=== PATIENT | female | born 1985 | race Caucasian/White ===

== ENCOUNTER 2016-07-17 14:01 | Observation (INO) | payer OTHER ==
[~2016-07-17] VITALS: Ht 160 cm; Wt 62.3 kg
[2016-07-17] VITALS (9 sets, daily range): BP systolic 98–130; BP diastolic 56–87; PULSE 74–120; RESP 12–20; O2SAT 96–100
[~2016-07-17 14:01] MED LIST: ACYC400T17 PO; PREN1TAB47 PO
[2016-07-17] MEDS ORDERED: Propofol 10,000 mCg/mL 20 mL Inj ONE (14:02)
[2016-07-17] MEDS ORDERED: Phenylephrine/NS-PF 100 mCg/mL 5 mL Syringe IVPUSH ONE (14:02)
[2016-07-17] MEDS ORDERED: Calcium Chl 10% 1 Gm/10 mL Syringe ONE (14:02)
[2016-07-17] MEDS ORDERED: Glycopyrrolate 0.2 mg/mL 5 mL Inj ONE (14:02)
[2016-07-17] MEDS ORDERED: Rocuronium 10 mg/mL 5 mL Inj ONE (14:02)
[2016-07-17] MEDS ORDERED: Neostigmine 1 mg/mL 5 mL Inj ONE (14:02)
[2016-07-17] MEDS ORDERED: Dexamethasone 4 mg/mL Inj ONE (14:02)
[2016-07-17] MEDS ORDERED: fentaNYL-PF 50 mCg/mL 2 mL Inj ONE (14:02)
[2016-07-17] MEDS ORDERED: Ondansetron 2 mg/mL 2 mL Inj ONE (14:02)
[2016-07-17] MEDS: Lactated Ringer's 1,000 ML IV SCH ×3 (14:30→19:04)
[2016-07-17] MEDS ORDERED: 0.9% Sodium Chloride 1,000 ML IV ONE (14:30)
--- NOTE | 2016-07-17 14:56 | HP ---
[address] [address] HISTORY AND PHYSICAL PATIENT: SAM GAN : 1985 MR#: [id number] ADMIT: 07/17/2016 JOB ID: [id number] CHIEF COMPLAINT: Ectopic . HISTORY OF PRESENT ILLNESS: This is a 30-year-old, G3, P 1-0-1-1 female who is presenting at an early gestational age after being transported over from [facility] for a ruptured ectopic . The patient had an early intrauterine and initially presented to our clinic for an amenorrhea visit. She followed up with light vaginal bleeding. After calling our triage line complaining of increasing vaginal bleeding and abdominal pain, she was recommended to present to the emergency department and an ambulance was called the morning of the . At [facility], imaging findings were concerning for a ruptured ectopic , and she was transferred over to our facility for this reason. Laboratory data at [facility] showed a hemoglobin of 10.0, down from ~12 two days prior. PAST MEDICAL HISTORY: History of chlamydia x2. PAST SURGICAL HISTORY: section x1. OBSTETRICAL HISTORY: She has a history of one miscarriage, one section and her current . SOCIAL HISTORY: She denies any tobacco, alcohol, or drug use. She does have a history of chlamydia infections twice in the past. MEDICATIONS: None. ALLERGIES: WELLBUTRIN. OBJECTIVE: Vital signs at this time are unavailable. In general, she is very pale and ill appearing in bed. Her heart shows regular rate and rhythm. Her lungs are clear to auscultation bilaterally. Her abdomen is soft, with diffuse abdominal tenderness. It is nondistended. Her extremities show no tenderness or edema. Laboratory data at this time is pendin. Typed and crossed labs will be collected in the operating room. She does consent to blood transfusion if needed. ASSESSMENT: This is a 30-year-old, 3, para 1-0-1-1 female with a ruptured ectopic . PLAN: At this point in time, we will bring her back to the operating room for diagnostic laparoscopy and treatment of her ruptured ectopic. She will be typed and crossed for 2 units at that time, though her hemoglobin does appear stable, as is her pulse at this time. She will be screened for her Rh status in the near future and if needed, RhoGAM will be given. Anticipate discharge home likely tomorrow. MARINA
--- NOTE | 2016-07-17 15:02 | PCM.HPANE ---
Patient Data Surgeon Admitting Provider: Attending Provider:Tamra Morales MD Primary Care Physician:Senait Rossi MD Other Provider:[facility] Reason for Visit Ruptured Etopic Ht/WT & BMI Body Mass Index Allergies Coded Allergies: No Known Allergies (Unverified Allergy, Unknown, 07/17/16) bupropion (Verified Allergy, Unknown, "I BLACK OUT", 07/17/16) Diabetes History Hx Diabetes?: No Medications Hypertension Medication: No Home Meds Incl Beta Jess: No Reported Medications Acyclovir-Expunged Drug, Do Not Renew! 400 Mg [id number] Mg PO BID 01/13/12 Vit/Fe Fumarate/Fa-Expunged Drug, Do (-Expunged Drug, Do Not Renew!)1 Tab Tablet1 Tab PO DAILY 01/13/12 History History of ENT Problems?: No Hx of Heart Problems?: No Hx of Respiratory Problem?: No Hx Neurologic Problems?: No Hx of GI Problems?: No Hx of Problems?: No Other History/Comment ectopic Hx Musculoskeletal Problems?: No Hx of Psycho/Social Problems?: No Hx Surgeries?: Yes (c/s) History Blood Transfusions: Positive for:: Accept Blood Products? Hx Diabetes: No Hx Alcohol Use: YesHave You Smoked inLast 12 mo: No Stop/Bang JUDITH Risk Assessment: Low Risk, <3 Yes Risk Assessment Category Category 1A: Patient has history of documented sleep apnea, and HAS NOT received any narcotic, sedative or anesthesia administration during this stay. Category 1B: Patient has history of documented sleep apnea, and HAS received any narcotic , sedative or anesthesia administration during this stay Category 2: Patient has SUSPECTED Obstructive Sleep Apnea, and HAS received any narcotic , sedative or anesthesia administration during this stay. Category 3: Patient has SUSPECTED Obstructive Sleep Apnea and HAS NOT received narcotic, sedative or anesthesia administration during this stay. Category 4: Outpatient in Procedural Areas with known sleep apnea or who screen positive for High Risk via the STOP/BANG questionnaire. Exam Exam Vital Signs Vital Signs Date Time Temp Pulse Resp B/P Pulse Ox O2 Delivery O2 Flow Rate FiO2 07/17/16 14:25 106/64 07/17/16 14:15 108/68 07/17/16 14:10 36.3 94 12 103/56 100 Room Air General Appearance: Alert, Oriented X3, Cooperative, No Acute Distress, Other ( pale) HEENT/AIRWAY: MP 2 Lungs: Clear to Auscultation, Normal Air Movement Heart: Exam Unremarkable, Regular Rate/Rhythm, No Murmurs/Rubs/Gallops Meds/Labs/Diagnostics Labs Test 07/17/16 14:52 Plan Impression Patient chart reviewed, patient interviewed and anesthestic plan with risks, benefits, and alternatives discussed, and informed consent obtained. NPO Status: 0700 07/17/16 ASA Physical Status: ASA1 Plus Emergency Anesthetic Plan: GA Bene/Risks/Altern/Consents: Yes (accepts blood products) HP Complete Prior to Induction: Yes Guido Galvez MD Jul 17, 2016 15:01
[2016-07-17 15:09] LABS: Mean Corpuscular Hemoglobin 32.8 pg (27.0-35.0)
[2016-07-17] MEDS ORDERED: Bupivacaine 0.5%/EPI 50 mL Inj INFILTRATE ONE (15:12)
[2016-07-17] MEDS ORDERED: Lactated Ringer's 500 ML IV PRN (15:27)
[2016-07-17] MEDS ORDERED: EPHEDrine Sulfate 50 mg/mL Inj IVPUSH PRN (15:30)
[2016-07-17] MEDS ORDERED: fentaNYL-PF 50 mCg/mL 2 mL Inj IVPUSH PRN (15:30)
[2016-07-17] MEDS ORDERED: Atropine 0.4 mg/mL Inj IVPUSH PRN (15:30)
[2016-07-17] MEDS ORDERED: Labetalol 5 mg/mL 4 mL Inj IV PRN (15:30)
[2016-07-17] MEDS ORDERED: Phenylephrine 10,000 mCg/mL Inj IVPUSH PRN (15:30)
[2016-07-17] MEDS ORDERED: hydrALAZINE 20 mg/mL Inj IVPUSH PRN (15:30)
[2016-07-17] MEDS ORDERED: HYDROmorphone 1 mg/mL Inj IVPUSH PRN (15:30)
[2016-07-17] MEDS ORDERED: MetoCLOpramide 5 mg/mL 2 mL Inj IVPUSH PRN ×2 (15:30→16:35)
[2016-07-17] MEDS ORDERED: Senna-Docusate 8.6-50 mg Tablet PO PRN (16:35)
[2016-07-17] MEDS ORDERED: Alum-Mag Hydrox-Simeth 30 mL Suspension PO PRN (16:35)
[2016-07-17] MEDS ORDERED: Ondansetron 2 mg/mL 2 mL Inj IVPUSH PRN (16:35)
--- NOTE | 2016-07-17 16:38 | PCM.ANEP1 ---
Post Anesthesia Phase 1 PACU Phase 1 Assessment Vital Signs Vital Signs Date Time Temp Pulse Resp B/P Pulse Ox O2 Delivery O2 Flow Rate FiO2 07/17/16 14:25 106/64 07/17/16 14:15 108/68 07/17/16 14:10 36.3 94 12 103/56 100 Room Air Anesthetic Administered: GA Level of Alertness: Awake, talking REYES's with Equal Strength: Yes Pain: No Nausea or Vomiting: No Oxygen Delivery: Simple Mask Lungs: Clear to Auscultation, Normal Air Movement Summary VSS, 2nd unit of blood ongoing Guido Galvez MD Jul 17, 2016 16:38
[2016-07-17 17:12] LABS: Mean Corpuscular Hemoglobin 30.7 pg (27.0-35.0); Mean Corpuscular Volume 94.5 fL (81-100)
--- NOTE | 2016-07-17 17:36 | PCM.ANEP2 ---
Post Anesthesia Evaluation ASA/CMS Post Anesthesia VS in Patient's Normal Range?: Yes Resp Stable; Airway Patent?: Yes CV Function & Hydration Stable: Yes Mental Status Recovered?: Yes Pain control Satisfactory?: Yes N/V Control Satisfactory?: Yes Guido Galvez MD Jul 17, 2016 17:36
[2016-07-17] MEDS: Ondansetron 2 mg/mL 2 mL Inj IVPUSH PRN (18:07)
[2016-07-17 18:26] LABS: INR 1.16 ratio
--- NOTE | 2016-07-17 18:38 | OP ---
[address] [address] OPERATIVE REPORT PATIENT: SAM GAN : 1985 MR#: [id number] ADMIT: 07/17/2016 JOB ID: [id number] DATE OF SURGERY: 07/17/2016 PREOPERATIVE DIAGNOSIS(ES): Ruptured ectopic . POSTOPERATIVE DIAGNOSIS(ES): Ruptured ectopic . PROCEDURE PERFORMED: Diagnostic laparoscopy. Evacuation of hemoperitoneum and left salpingectomy with removal of left-sided ectopic . SURGEON: Tamra Morales MD. DITTO MACHINE OPERATOR: Marcelino Cartagena MD, who was necessary due to the complicated nature of the case with the patient's history of previous surgeries and hemodynamic instability. ANESTHESIA: General endotracheal anesthesia. ESTIMATED BLOOD LOSS: 1500 cc. URINE OUTPUT: 150 cc of clear yellow urine. INTRAVENOUS FLUID: 1400 cc of crystalloid, 2 units of packed red blood cells. COMPLICATIONS: None apparent. INDICATIONS: This is a 30-year-old, G3, P-1-0, now 2-1 female who presented to [facility] by ambulance for abdominal pain. She had a known early with a quant of 900 and had intermittent vaginal bleeding. She had been seen there the day prior and ultrasound did not reveal anything within the uterus and no adnexal masses. After presenting this morning a repeat ultrasound showed hemoperitoneum and concern for ruptured ectopic . Her hemoglobin at the time of evaluation at [facility] was 10.0, and she was moderately hypotensive but was responding well to fluid boluses. After deeming that she was stable for transfer, she was then transferred to [facility] for emergent surgery as no OB/GYNs were available at this facility. Risks, benefits, and alternatives were discussed with her at the time of arrival and she did elect to proceed. DESCRIPTION OF PROCEDURE: The patient was taken to the operating room where she was placed in dorsal lithotomy position, prepped and draped in the usual sterile fashion. Intraoperatively, she was noted to be quite hypotensive with blood pressures in the 70s systolic over 30s diastolic and 2 units of packed red blood cells were then ordered. After anesthesia was administered, a bivalve speculum was placed and the anterior lip of the cervix was grasped with a tenaculum. An acorn uterine manipulator was then placed. Attention was then turned to the abdomen where a Veress needle was inserted in the midline of the umbilicus and the abdomen was insufflated with appropriately rising CO2 pressures. Next after injection of local anesthetic, a 5 mm infraumbilical incision was made and a 5 mm trocar was then placed. There was noted to be a large hemoperitoneum and so a 2nd port was then placed in the right lower quadrant, initially with a 5 mm port, which was then increased to a 10 mm size to allow for a larger suction supreme court justice and her hemoperitoneum was then evacuated out of the abdomen. Her uterus was noted to be normal in appearance. Her right fallopian tube and right ovary were normal in appearance. Her left fallopian tube showed evidence of a small cornual ectopic which was thought to be where the bleeding was coming from and adhesions were noted from the fallopian tube to the ovary consistent with her history of previous chlamydia infection. The left fallopian tube was then removed using the Thunderbeat device and the left fallopian tube and left ectopic were then removed from the abdomen. Hemostasis was assured. The abdomen was copiously irrigated and all attainable hemoperitoneum was removed with the suction supreme court justice for a total blood loss of approximately 1500 cc of blood. Once hemostasis was achieved and her abdomen was cleared of blood products the right lower quadrant port site was removed and the fascia was then closed with 0-Vicryl using a Claudio-Luis F device. The skin was then closed with 4-0 Monocryl in a subcuticular fashion. Dermabond was placed on top. Next, the acorn manipulator was removed from the uterus and the tenaculum was then removed. The tenaculum sites were inspected and noted to be hemostatic. The patient tolerated this procedure well, recovered in the PACU. All sponge, needle, and instrument counts were correct at the completion of the procedure. [facility]
--- NOTE | 2016-07-17 18:40 | NUR ---
Arrival to 1031 Pt transferred to 1031 at 1730 from PACU. Pain rated at 7/10 with mild nausea. 3 lap sites are CDI with dermabond and abdomen is soft but tender. Pt is alert and oriented and requesting dinner. Kpad given for abdomen, Ketorolac for pain and Zofran for nausea given. Family at bedside. Report taken from MARY Garcia.
[2016-07-17] MEDS: Acetaminophen IV 1,000 MG in IV Premix 1 EACH IV PRN (21:24)
[2016-07-17] MEDS: Senna-Docusate 8.6-50 mg Tablet PO SCH (21:30)
[2016-07-17] MEDS: oxyCODONE-Acetamin 5-325 mg Tablet PO PRN (22:29)
[2016-07-18] VITALS (7 sets, daily range): BP systolic 93–100; BP diastolic 50–67; PULSE 67–84; RESP 16–20; O2SAT 97–99
[2016-07-18] MEDS: oxyCODONE-Acetamin 5-325 mg Tablet PO PRN ×4 (02:48→17:53)
[2016-07-18] MEDS: Lactated Ringer's 1,000 ML IV SCH ×3 (02:53→16:29)
--- NOTE | 2016-07-18 04:18 | NUR ---
Pain Pt. has had moderate to severe pain all night. IV Toradol and PO Percocet seems to keep it from becoming very severe. Will continue to monitor.
[2016-07-18 07:00] LABS: BASOPHILS % (AUTO) 0.1 % (0-3); EOSINOPHILS % (AUTO) 0.1 % (0-5); MONOCYTES % (AUTO) 8.2 % (4-12); Mean Corpuscular Hemoglobin 31.7 pg (27.0-35.0); Mean Corpuscular Volume 92.3 fL (81-100); Platelet Count 46 bil/L (150-400)
[2016-07-18] MEDS: Acetaminophen IV 1,000 MG in IV Premix 1 EACH IV PRN (08:42)
[2016-07-18] MEDS: Senna-Docusate 8.6-50 mg Tablet PO SCH (08:56)
[2016-07-18] MEDS: Ondansetron 2 mg/mL 2 mL Inj IVPUSH PRN ×2 (09:15→12:47)
--- NOTE | 2016-07-18 12:48 | NUR ---
Social Work- Initial Assessment/Readiness for Discharge Data: Pt is a 30 year old female admitted for Ruptured Ectopic per H&P. Pt's insurance is [facility] and PCP is Payton Cartagena MD. SW met with pt and pt's mother at bedside to discuss discharge planning, SW role explained. Pt lives in [place] with her boyfriend and daughter where she remains independent with her ADLs. Pt does not use DME, does not have HH or SNF history. Pt drives. Pt has no LTC or VA benefits. SW educated pt regarding DPOA, left paperwork to be completed. SW provided phone number and plan on board. Pt to discharge home with boyfriend to transport via POV. No anticipated discharge needs. SW will continue to follow. Assessment: [place]. Plan: Pt to discharge home with boyfriend to transport via POV. No anticipated discharge needs. SW will continue to follow. Shelly Juan MSW
--- NOTE | 2016-07-18 14:45 | PROG NOTE ---
[address] [address] PROGRESS NOTE PATIENT: SAM GAN : 1985 MR#: [id number] ADMIT: 07/17/2016 JOB ID: [id number] DATE: 07/18/2016 SUBJECTIVE: The patient looks lethargic in bed. Alert and oriented x3. Did not ambulate yet. Tolerated some p.o. intake this morning. Ins and outs for the last 8 hour shift is 1752 cc in, 1000 cc out. OBJECTIVE: Vital signs are 36.7 degrees centigrade for temperature, pulse is 67, respirations are 18, blood pressure is 96/52, pulse ox is 97% on room air. Heart is regular rate and rhythm. Positive S1, S2. Lungs clear to auscultation bilaterally. Abdomen: Nondistended, positive bowel sounds. Laparoscopic incisions are clean, dry and intact with appropriate tenderness around the laparoscopic incisions. Perineum: No active bleeding. Lower extremities: No calf tenderness appreciated bilaterally. H and H this morning is 7.8 and 22.7. Platelets are 46, down from 61 yesterday and a white blood count is 15.7. ASSESSMENT AND PLAN: The patient is a 30-year-old postop day #1 status post left salpingectomy with ectopic removal plus evacuation of hemoperitoneum. The patient received blood transfusion yesterday by Dr. Morales for severe anemia. 1- severe anemia: Continue with iron and vitamin C. 2- severe thrombocytopenia. Hospitalist consulted. After discussing with the hospitalist, will evaluate for blood smear, HIV, hepatitis C virus infection and anti-phospholipid antibody syndrome labs. 3- Advance diet as tolerated. 4- DC Wilson catheter. 5- Ambulate. Continue with inpatient care. MTDD
[2016-07-18] MEDS ORDERED: 0.9% Sodium Chloride 250 ML ONE (16:31)
[2016-07-18] MEDS ORDERED: Acetaminophen IV 1,000 MG in IV Premix 1 EACH IV PRN (17:15)
[2016-07-18] MEDS: Ascorbic Acid 500 mg Tablet PO SCH (17:25)
--- NOTE | 2016-07-18 17:25 | PCM.CHPMED ---
Subjective Date of Service: Jul 18, 2016 Provider requesting consult: Ofelia Talavera MD Primary Physician: Admitting Physician: Primary Care Physician: Senait Rossi MD Attending Physician: Tamra Morales MD Chief Complaint: Chief Complaint: Anemia and thrombocytopenia History of Present Illness: HPI: Patient is a 30-year-old G3, P1011 female who presented to the emergency room as a transfer from [facility] for a ruptured ectopic . The patient was admitted to the [facility] service for increasing vaginal bleeding and abdominal pain. The patient was diagnosed with a ruptured ectopic and decreasing hemoglobin. Her hemoglobin on admission was 6.6 and 2 days prior it was 12. The patient had a laparoscopic procedure on 07/17 and had about 1500 mL of blood loss. The patient was fluid resuscitated and also had 2 units of packed red blood cell transfusion. The patient's hemoglobin increased to 10.1 however her platelets decreased from 80 down to 54. The patient's hemoglobin was 7.8 and hematocrit was 22.7 and platelets were 46 this morning and that is when Dr. Talavera decided to consult medicine for management of her anemia and thrombocytopenia. Patient currently denies any chest pain, shortness of breath, nausea, vomiting, diarrhea, headache. Patient reports some constipation and lethargy. Home medications: vitamins Allergies: Drug: Wellbutrin Food: No known food allergies Enviornmental: No known environmental allergies PMHx: HSV 1 Previous spontaneous SHx: 1 FHx: No coagulopathies in the family SocHx: Tobacco history: Patient denies Alcohol use: Patient denies Drug use: Positive for marijuana use only ROS: A 12point review of systems was performed or attempted to be performed. Please see HPI for pertinent positives. Physical Exam: GEN: Patient was awake, lethargic, responding appropriately to questions HEENT: PERRLA, EOMI, Neck soft supple, trachea midline, nomocephalic/atraumatic CV: +S1/S2, RRR, no murmurs auscultated Respiratory: CTAB, no wheezes, rales, rhonchi GI: +bowel sounds x4, soft, compressible, TTP secondary to laparoscopic procedure, incisions are clean dry and intact no signs of erythema or edema EXT: no c/c/e Neuro: CN II-XII grossly intact Psych: mood and affect were appropriate PMH Allergies: Coded Allergies: No Known Allergies (Unverified Allergy, Unknown, 07/17/16) bupropion (Verified Allergy, Unknown, "I BLACK OUT", 07/17/16) Social History Hx Alcohol Use: Yes Exam Vital Signs Vital Sign - Last Date Time Temp Pulse Resp B/P Pulse Ox O2 Delivery O2 Flow Rate FiO2 07/18/16 12:31 36.8 71 16 94/54 99 Room Air 07/17/16 17:15 2 Intake and Output 07/17/16 07/17/16 07/18/16 Cumulative From/Thru 15:00 23:00 07:00 07/17/16 14:30 - 07/18/16 06:37 Intake Total 1300 ml 900 ml 1752 ml 3952 ml Output Total 150 ml 1650 ml 1000 ml 2800 ml Balance 1150 ml -750 ml 752 ml 1152 ml Intake Oral 200 ml 440 ml 640 ml IV Total 1300 ml 700 ml 1312 ml 3312 ml Output Urine Total 150 ml 150 ml 1000 ml 1300 ml Estimated Blood Loss 1500 ml 1500 ml Lab and Diagnostics Result Diagram: 07/18/16 0620 Assessment & Plan Assessment 30-year-old G3, P1011 female status post ectopic and laparoscopic surgery with anemia and thrombocytopenia. Acute blood loss anemia -Current hemoglobin and hematocrit is 7.8/22.7 -Transfuse 1 unit of packed red blood cells today -Follow up iron studies -CBC, CMP in the morning Thrombocytopenia -Anticardiolipin panel -Beta-2 glycoprotein antibodies -Factor V Leiden screen -Lupus anticoagulant -Hepatitis C antibody -HIV panel Hypotension -Blood pressure 94/54 -Bolused 1 L lactated Ringer's -Blood transfusion 1 unit -Follow up H&H status post transfusion -Discontinue opioid medications for pain -Use only non opioid medications for pain management IV Tylenol, ketorolac, ibuprofen Ectopic status post laparoscopic D&C -Currently stable and managed by OB DVT prophylaxis: SCDs do not use heparin Diet: Regular Disposition: Patient is currently being worked up for other sources of a possible coagulopathy. Patient does have a history of spontaneous abortions prior to this one and was not able to carry her last child to term. We will see how the patient responds to the transfusion and will consider transfusing platelets if necessary. Some of this may be delusional as the patient has had 2 units of blood plus multiple liters of fluid. We will continue to monitor the patient. Problems: VTE Mechanical Devices: Intermittant Pneumatic CD Time spent Greater than 35 minutes Virginia Landry DO Jul 18, 2016 14:49
[2016-07-18 17:34] LABS: Unsaturated Iron Binding 65.1 ug/dL
--- NOTE | 2016-07-18 18:35 | NUR ---
Blood Transfusion/Pain Blood consent done with surgery consent yesterday. Pt is agreeable to receiving blood again. Vital signs taken prior to blood transfusion. Blood double checked with Maurice Barragan RN. Blood transfusion started at 1710. Rechecked VS at 1725 and pt denies any s/s of reaction at this time. Increased transfusion rate to 150ml/hr. Pt advised to use call light if having any s/s. Pt had pain ranging from 6-8/10 during shift. Medications given and k pad in place for comfort. Pt has reached limit for Acetaminophen for 24 hours. Archana JOINER and she declined to change meds at this time.
[2016-07-18 21:44] LABS: Mean Corpuscular Hemoglobin 30.2 pg (27.0-35.0); Mean Corpuscular Volume 90.2 fL (81-100)
[2016-07-19 00:26] VITALS: BP 100/50; PULSE 96; RESP 16; O2SAT 97
--- NOTE | 2016-07-19 04:53 | NUR ---
Pain/Blood VS WNL and no adverse effects to blood infusion. Labs redrawn and H/H 9.2/27.5 after infusion. Pt reports pain and some nausea, managed with toradol, reglan; benadryll given per request. Pt sleeping well and no further complaints of pain. IV infusing NS for hydration and reduced PO intake r/t nausea. No complaints of SOB or chest pain. Significant other sleeping in room. Care continues
[2016-07-19 05:10] VITALS: BP 111/65; PULSE 98; RESP 16; O2SAT 97
[2016-07-19] MEDS: oxyCODONE-Acetamin 5-325 mg Tablet PO PRN ×3 (05:16→15:30)
[2016-07-19] MEDS: Senna-Docusate 8.6-50 mg Tablet PO SCH ×2 (05:17→10:02)
[2016-07-19 06:08] LABS: Mean Corpuscular Hemoglobin 30.1 pg (27.0-35.0); Mean Corpuscular Volume 91.3 fL (81-100)
[2016-07-19 06:25] LABS: INR 0.97 ratio
[2016-07-19] MEDS: Ascorbic Acid 500 mg Tablet PO SCH (08:45)
--- NOTE | 2016-07-19 10:43 | NUR ---
Social Work- Readiness for Discharge Data: EMR reviewed. Pt is on day 1 of hospitalization for ruptured ectopic per H&P. Pt is not medically stable for discharge, anticipate 1-2 more days. Per MD in rounds, pt continues to have low platelet counts. Pt to discharge home with boyfriend to transport via POV. No anticipated discharge needs. SW will continue to follow if needs arise. Assessment: [place] Plan: Pt to discharge home with boyfriend to transport via POV. No anticipated discharge needs. SW will continue to follow if needs arise. Shelly Juan ASSET SPECIALIST
[2016-07-19 11:07] LABS: Mean Corpuscular Hemoglobin 30.1 pg (27.0-35.0); Mean Corpuscular Volume 91.1 fL (81-100)
--- NOTE | 2016-07-19 11:41 | PCM.DIGYN ---
Surgical Discharge Instruction Dates of Hospitalization Date of Hospital Admission Providers Admitting Physician: Primary Care Physician: Senait Rossi MD Attending Physician: Virginai Landry DO Diagnosis at Time of Discharge Diagnosis at time of discharge Ruptured left ectopic Problems: Diet Discharge Diet: No restrictions Activity Discharge Activity-General: Try not to overdue, Be up and about, Balance rest and activity, Activity as pain allows, No lifting >15 pounds for 2 weeks Dressing and Incisional Care Hygiene: May shower, NO bathtub, hot tub or whirlpool Additional Instructions Discharge Instructions Please call with any increasing severe pain, temperature greater than 100.5 degrees, heavy vaginal bleeding or malodorous discharge. Please also call for any worsening dizziness, palpitations or or chest pain. Follow Up Plan Follow-up Provider (F9): Marcelino Cartagena MD Follow-up appointment: Weeks (2) Call your provider for: Fever, Chills, Shortness of breath, Heavy vaginal bleeding, Wound redness Tamra Morales MD Jul 19, 2016 11:41
[2016-07-19] MEDS ORDERED: FERR-74 PO (11:42)
[2016-07-19] MEDS ORDERED: IBUP800T28 PO (11:42)
[2016-07-19] MEDS ORDERED: DOCU-41 PO (11:42)
[2016-07-19] MEDS ORDERED: OXYC1TAB24 PO (11:42)
--- NOTE | 2016-07-19 11:43 | NUR ---
Social Work- Discharge Data: EMR reviewed. Pt is on day 1 of hospitalization for ruptured ectopic per H&P. Pt to discharge today. Pt to discharge home with boyfriend to transport via POV. No discharge needs. Assessment: [place] Plan: Pt to discharge home with boyfriend to transport via POV. No discharge needs. NICK Luz
--- NOTE | 2016-07-19 12:19 | PCM.PNMED ---
Subjective Date of Service Jul 19, 2016 Subjective Patient was seen and examined at bedside today. Patient denies any chest pain, shortness of breath, nausea, vomiting, diarrhea. Exam Vital Signs Vital Sign - Last Date Time Temp Pulse Resp B/P Pulse Ox O2 Delivery O2 Flow Rate FiO2 07/19/16 05:10 36.9 98 16 111/65 97 Room Air 07/17/16 17:15 2 Intake and Output 07/18/16 07/18/16 07/19/16 Cumulative From/Thru 15:00 23:00 07:00 07/17/16 14:30 - 07/19/16 05:56 Intake Total 2190 ml 875 ml 7017 ml Output Total 600 ml 500 ml 3900 ml Balance 1590 ml 375 ml 3117 ml Intake Oral 462 ml 370 ml 1472 ml IV Total 1428 ml 505 ml 5245 ml Packed Cells 300 ml 300 ml Output Urine Total 600 ml 500 ml 2400 ml Estimated Blood Loss 1500 ml # Voids 1 1 2 Exam Physical Exam: GEN: Patient was awake, alert, responding appropriately to questions HEENT: PERRLA, EOMI, Neck soft supple, trachea midline, nomocephalic/atraumatic CV: +S1/S2, RRR, no murmurs auscultated Respiratory: CTAB, no wheezes, rales, rhonchi GI: +bowel sounds x4, soft, compressible, TTP at surgical sites only, surgical sites clean dry and intact no erythema or edema noted EXT: no c/c/e Neuro: CN II-XII grossly intact Psych: mood and affect were appropriate IVs and Medications Medications Reviewed: Medications were reviewed in detail Lab and Diagnostics Result Diagram: 07/19/16 1058 07/19/16 0510 Assessment & Plan 30-year-old G3, P1011 female status post ectopic and laparoscopic surgery with anemia and thrombocytopenia. Acute blood loss anemia -Current hemoglobin and hematocrit is 7.8/22.7 yesterday today's levels are 8.5/ 25.7 -Transfuse 1 unit of packed red blood cells yesterday once -Follow up iron studies -CBC, CMP in the morning Thrombocytopenia -Anticardiolipin panel: Pending -Beta-2 glycoprotein antibodies: Pending -Factor V Leiden screen: Pending -Lupus anticoagulant: Pending -Hepatitis C antibody: Pending -HIV panel: Pending DIC -Repeat fibrinogen level if the patient's fibrinogen level is over 150 the patient should be able to go home -Follow up with hematology oncology as an outpatient Dr. Potts Hypotension-improved -Blood pressure 94/54 yesterday and today 111/65 -Bolused 1 L lactated Ringer's -Blood transfusion 1 unit -Discontinue opioid medications for pain -Use only non opioid medications for pain management IV Tylenol, ketorolac, ibuprofen Ectopic status post laparoscopic D&C -Currently stable and managed by OB DVT prophylaxis: SCDs do not use heparin Diet: Regular Disposition: Patient seems to be responding well to the blood transfusion. Patient most likely had DIC and this seems to be resolving patient should follow -up with Dr. Potts as an outpatient for follow-up on these multiple labs that were drawn as these could be a possible reason why the patient has had 2 miscarriages. If patient's fibrinogen level is over 150 the patient should be able to go home and follow-up with Dr. Potts as an outpatient. Patient seems to be progressing well signing off. Thank you for the consult please contact us if you need anything further. VTE Mechanical Devices: Intermittant Pneumatic CD Virginia Landry DO Jul 19, 2016 12:19
--- NOTE | 2016-07-19 13:10 | CONS ---
[address] [address] CONSULTATION REPORT PATIENT: SAM GAN : 1985 MR#: [id number] ADMIT: 07/17/2016 JOB ID: [id number] DATE OF SERVICE: 07/19/2016 REASON FOR CONSULTATION: Thrombocytopenia in a patient with complication. HISTORY OF PRESENT ILLNESS: The patient is a pleasant, 30-year-old female, G2, P1, AB 1, who presented with left-sided ruptured ectopic at early gestational age. She initially had light vaginal bleeding in the setting of normal intrauterine , but subsequently vaginal bleeding worsened and she developed severe abdominal pain, was taken to [facility] ED, where ultrasound was concerning for ruptured ectopic . She was transferred to this hospital and underwent diagnostic laparoscopy by Dr. Tamra Morales two days ago. Intraoperatively, there was ectopic in the left side and she underwent left salpingectomy. There was a large amount of hemoperitoneum that was evacuated, approximately a total blood loss of 1500 cc. She has had a nice and quick recovery and today she feels good and is ready to go home. She developed severe blood-loss anemia, with rapid drop in hemoglobin from 12 a few days prior to admission to 6.6 on day of admission. She has received 2 units packed red blood cell transfusion and has responded appropriately. Hemoglobin this morning is 8.7. There is no hemolysis as evidenced by normal retic count and normal LDH. Platelet count on day of admission two days ago was [address], but since then has dropped and plateaued around 50,000. This morning was 47,000 and yesterday was 51,000. Of note, she had gestational thrombocytopenia during her previous , and during an older ER visit in 2010, her platelet count was low at 103,000. She does not recall being checked in between these episodes. She does not carry diagnosis of ITP. Fibrinogen was checked on admission on July 17 and was low at 109, consistent with acute DIC. This needs to be repeated today. INR was slightly prolonged on day of admission at 1.16, and it has improved to 0.97 today. This is consistent with improvement in acute DIC after resolution of cause, but will still verify by repeating fibrinogen. PAST MEDICAL HISTORY: 1. HSV 1 infection. 2. Chlamydia infection. 3. Previous spontaneous at eight weeks gestational age. 4. Right ovarian cyst torsion associated with severe pain, spontaneously resolved. This happened last year. PAST SURGICAL HISTORY: x1. FAMILY HISTORY: Her mother has hereditary hemochromatosis. SOCIAL HISTORY: She does not smoke cigarettes and does not drink alcohol. She is and lives in [place]. OBJECTIVE: Currently she appears well and is resting comfortably. She is not septic appearing at all. Vitals are normal including blood pressure 111/65, heart rate 98, temperature 36.9, O2 saturation 97% on room air. IMPRESSION AND RECOMMENDATIONS: This patient clearly had mild acute disseminated intravascular coagulation due to her ruptured ectopic and large hemoperitoneum. This is evidenced by low fibrinogen on day of admission. The patient probably also has a background of thrombocytopenia, perhaps mild ITP, but this was not clearly demonstrated before. I think the etiology of her thrombocytopenia is acute DIC in the setting of mild pre-existent thrombocytopenia. Now that the source of DIC has been removed, the platelet count should spontaneously recover to baseline. I agree with testing for antiphospholipid syndrome. given prior thrombocytopenia and prior miscarriage. Anticardiolipin antibodies and lupus anticoagulant have been collected and sent off. Today, we will check serum fibrinogen level. If it is over 150, this patient can be safely discharged home today. If it is under 100, I would keep patient overnight and recheck tomorrow morning. This was discussed with patient, her mother and Dr. Morales, who was present at her room when I arrived. Will also set up a followup hematology visit in about two weeks and recheck her platelet count at that point. Thank you for consultation.
[2016-07-19 13:28] VITALS: BP 103/62; PULSE 77; RESP 18; O2SAT 98
--- NOTE | 2016-07-19 15:12 | DIS ---
[address] [address] DISCHARGE SUMMARY PATIENT: SAM GAN : 1985 MR#: [id number] ADMIT: 07/17/2016 JOB ID: [id number] DIS: 07/19/2016 ADMISSION DIAGNOSIS: Ruptured ectopic . DISCHARGE DIAGNOSIS: 1. Ruptured ectopic . 2. Disseminated intravascular coagulopathy PROCEDURES PERFORMED: Diagnostic laparoscopy with evacuation of hemoperitoneum and left salpingectomy with removal of left interstitial ectopic . CONSULTS: Hospitalist and Hematology for thrombocytopenia. REASON FOR ADMISSION: This is a 30-year-old, G3, P 1-0-1-1 female who presented after a transfer of care from [facility] for a ruptured ectopic . She had a known early with nothing noted within the uterine cavity and early spotting and had been getting serial ultrasounds, when her ultrasound on the showed the ruptured ectopic. She was transferred over for surgery. HOSPITAL COURSE: The patient was admitted on the afternoon of July 17, 2016, for ruptured ectopic . She underwent emergent diagnostic laparoscopy with evacuation of hemoperitoneum and removal of her left fallopian tube and interstitial ectopic. Please see the operative report for full details regarding this. She did have a large blood loss and then intraoperatively was given 2 units of packed red blood cells as her blood pressure was noted to be 70s over 30s in the operating room. With stat hemoglobin returning at 6.6 Postoperatively, a CBC was collected which showed that her platelet count had dropped down to 51 so a coagulation panel was collected which showed an elevated INR at 1.16 and a low fibrinogen at 109. She was monitored and on the morning of postop day one, CBC was recollected which showed increase in her intraoperative CBC, from 6.6, up to 10.1, which then dropped back down to 7.8 on postop day one. Because of this, she received a 3rd unit of blood and her hemoglobin increased to 9.2, and was noted to be stable on two followup values at 8.7, followed by 8.5 the next morning. Her platelets were noted to continue to be low around the 40s to 50s and because of this the hospitalist was consulted on postop day #1. After reviewing her chart, their recommendations were to begin a workup for antiphospholipid antibody syndrome and thrombocytopenia and to continue to monitor her. By postoperative day #2, her platelets were still low in the 40s, and because of this, Hematology was then consulted. Repeat INR on postoperative day two showed an improvement from 1.16 down to 0.97. By postoperative day #2, her pain was well controlled. She was tolerating a regular diet without nausea or vomiting, passing flatus, ambulating and voiding well on her own. Her blood type was noted to be A positive, and no RhoGAM was indicated and hematology saw her on the day of discharge and recommended discharge home pending a fibrinogen level greater than 150. She was noted to have had a longstanding history of mild thrombocytopenia in prior pregnancies as well, but by postoperative day #2, it was thought that her DIC was improving and her bleeding had stopped when her fibrinogen returned at 188. It was at this point in time that she was deemed stable for discharge PHYSICAL EXAMINATION: On the day of discharge, vitals are temperature 36.9, pulse 98, respiratory rate is 16. Blood pressure is 111/65. She is satting 97% on room air. General: She is awake, alert, oriented, in no acute distress. Lying comfortable in the bed. Heart shows regular rate and rhythm. Her abdomen is appropriately tender, nondistended. Her incisions are clean, dry, and intact without any erythema. Her extremities show no tenderness or edema. LABORATORY DATA: On the day of discharge, PT 10.4, INR 0.97. White count 9.5, hemoglobin of 8.5, platelet count of 46. ASSESSMENT/PLAN: This is a 30-year-old, G3, P-1-0-2-1 female, postoperative day #2, following emergent diagnostic laparoscopy for ruptured left-sided ectopic with subsequent development of disseminated intravascular coagulopathy, stable and improving at this time. PLAN: With her normal fibrinogen, she will be discharged home with recommendations for an outpatient workup with Hematology for her chronic low platelets. Her hemoglobin stabilized after 3 units of packed red blood cells and her coagulopathy and thrombocytopenia workup are still pending. These will be followed up as an outpatient. She will follow up in one week for an incision check in our clinic and she will return sooner if she is worsening. INSTRUCTIONS AT DISCHARGE: Patient was advised to remain on pelvic rest for six weeks including no tampons, douching, intercourse. She is asked to call with any signs or symptoms of infection including fever greater than 100.5 degrees, severe pain, malodorous vaginal discharge, bleeding greater than one pad per hour. She was asked to also call with any symptoms of the worsening anemia including dizziness, chest pain, palpitations, shortness of breath. She is planning to follow up in our clinic in one week for an incision and postoperative examination and as well with Hematology as an outpatient. All questions and concerns of the patient were answered. She was deemed stable for discharge on postoperative day #2. MARINA
--- NOTE | 2016-07-19 15:50 | NUR ---
Discharge Pt was discharged at 1540 via private vehicle home with family. Fibrinogen level was 188. Pt to be d/c'd if fibrinogen level is above 150. Pt to f/u with hematology and OBGYN in 2 weeks. Phone numbers provided to pt to make follow up appointments. IV d/c'd intact. No items in the safe or in the pharmacy. Hard copy of RX with pt. All questions answered.
--- NOTE | 2016-07-20 12:33 | PATH ---
SURGICAL PATHOLOGY Attending Physician:Tamra Morales, CASE STATUS: Signed Out PATIENT NAME: SAM GAN PID: [id number] : 1985 DATE COLLECTED:07/17/2016 00:00 SPECIMEN: 1: Fallopian Tube, Ectopic 2: Fallopian Tube, Ectopic CLINICAL HISTORY: RUPTURED ECTOPIC 1). ECTOPIC LEFT TUBE OUT 1500 TIF 1530 2). LEFT FALLOPIAN TUBE OUT 1515 TIF 1530 FINAL DIAGNOSIS: 1. Ectopic , Left Fallopian Tube: Immature chorionic villi associated with recent hemorrhage. No evidence of malignancy. 2. Left Fallopian Tube: No evidence of malignancy. ICD10: O00.1 GROSS DESCRIPTION: The specimens are received in formalin, labeled with the patient's name, and sublabeled as the following: (1) ectopic left tube; (2) left fallopian tube. (1) The specimen consists of a 2 pieces of tissue. Tissue #1 (2.2 x 0.8 x 0.5 cm) is pale rasheed rubbery and hemorrhagic. Tissue #2 (1.1 x 0.5 x 0.5 cm) is dark maroon solid and firm. No parts are identified. Section code: (1A) tissue #1, serially sectioned; (1B) tissue #1, bisected. Specimen entirely submitted. (2) The specimen consists of a fimbriated fallopian tube (length-5.4 cm, in diameter-0.6 cm). The serosa is zuniga-pink smooth and shiny with multiple paratubal cysts (0.1 cm-1.5 cm) containing clear colorless fluid. The lumen is rasheed and unremarkable. Section code: (2A) fallopian tube, serially sectioned, charter representative; (2B) fimbria, bivalved, entirely submitted. 07/18/16 ICD-9 CODES: CPT CODES: 1: 22696, 19260 Electronically Signed Out Les Hallman MD [facility] Pathology [facility] [address], [place] [address] Technical component performed at [facility], [facility] [address], [place], [address]
[2016-07-22 06:11] LABS: dRVVT 33.9 sec (0.0-44.0)
== END 2016-07-19 15:45 | disposition home or self-care (01) ==
LOC: SAS 14:01 → OSC 17:30 → SAS 17:30 → OSC 07-19 15:45
PROVIDERS: ADMIT Neuromusculoskeletal Medicine & OMM; ATTEND Neuromusculoskeletal Medicine & OMM
DX: O00.10 Tubal pregnancy without intrauterine pregnancy (principal); Z3A.00 Weeks of gestation of pregnancy not specified; Z86.19 Personal history of other infectious and parasitic diseases
CPT/HCPCS: 36415; 59151; 80053; 81241; 83516; 83540; 83550; 85025; 85027; 85049; 85384; 85610; 85613; 85670; 85730; 86147; 86922; 86927; 88302; 88305; 96374; 96375; 96376; G0379; G0472; J0131; J1100; J1200; J2370; J2405; J2710; J2765; J3010; J7030; J7050; J7120

== ENCOUNTER 2016-12-23 14:03 | Emergency (ER) | payer OTHER ==
[~2016-12-23] VITALS: Ht 160 cm; Wt 51.8 kg
[~2016-12-23 14:03] MED LIST changes: +DOCU-41 PO; +FERR-74 PO; +IBUP800T28 PO; +OXYC1TAB24 PO
[2016-12-23 14:08] VITALS: BP 121/83; PULSE 76; RESP 16; O2SAT 100
--- NOTE | 2016-12-23 14:34 | ED.REPORT ---
HPI-Abd Pain F Under 40 Date of Service Dec 23, 2016 ED Provider: Torres Crouch MD Pt is a 7 week 31 y/o female w/ a hx of ITP presenting to the ED c/o nausea and vomiting onset 1 week ago. She has been experiencing experiencing nausea and dry heaving constantly for 1 week. She has been dry heaving all day but has never actually vomited. She has been drinking sips of water but is still dry heaving. She has been experiencing some mild intermittent vaginal spotting which her [employer] is following. Denies bleeding at this time. She denies vaginal discharge, contractions, fever, dysuria, abdominal pain, diarrhea. Nursing Notes Stated Complaint: DRY HEAVING/NAUSEA Chief Complaint: Female Abdominal Pain Nursing Notes Reviewed: Yes Allergies: Coded Allergies: bupropion (Verified Allergy, Unknown, "I BLACK OUT", 07/17/16) Scheduled Acyclovir-Expunged Drug, Do Not Renew! (Acyclovir-Expunged Drug, Do Not Renew!) 400 Mg Tablet 400 MG PO BID Doxylamine/Pyridoxine 10-10 mg (Diclegis DR 10-10 mg) 1 Each Tablet.dr 1 TABLET PO BID Ferrous Sulfate (Feosol) 325 Mg Tablet 325 MG PO TID Vit/Fe Fumarate/Fa-Expunged Drug, Do (-Expunged Drug, Do Not Renew!) 1 Tab Tablet 1 TAB PO DAILY Scheduled PRN Docusate Sodium (Colace) 100 Mg Capsule 100 MG PO BID PRN PRN For Constipation Ibuprofen (Ibuprofen) 800 Mg Tablet 800 MG PO Q6H PRN PRN For Mild Pain oxyCODONE-Acetaminophen 5-325 mg (oxyCODONE-Acetaminophen 5-325 mg) 1 Each Tablet 1-2 TAB PO Q4H PRN PRN For Moderate Pain General Time Seen by MD: 14:28 Chief Complaint Vomiting mild Hx Obtained From: Patient Arrived By: Walk-in Sudden in Onset?: No Onset Occurred: 1 week ago Symptom Duration: Since onset Progression since Onset: Constant Severity: Current: No pain currently Severity: Maximum: No pain Similar Sx Previous: No Past Medical History Past Medical History ITP Hx ruptured left tubal ectopic causing hemoperitoneum Past Surgical History Smoking History Unknown if Ever Smoker Ambulatory Status Independent Review of Systems Constitutional: Denies: Chills, Fever Respiratory: Denies: Non-productive cough GI: Reports: Nausea, Vomiting, Denies: Abdominal pain Female: Reports: Vaginal bleeding - abnl, Denies: Dysuria, Vaginal discharge Complete sys rev & neg: except as marked. Physical Exam Initial Vital Signs Vital Signs (First) Date Time Temp Pulse Resp B/P Pulse Ox O2 Delivery O2 Flow Rate FiO2 12/23/16 14:08 36.6 76 16 121/83 100 Room Air Initial VS: Reviewed, Vital signs normal Head / Eyes: Atraumatic, Normocephalic ENT: Mucous membranes moist, Conjunctiva normal, No scleral icterus Neck: Supple, Full range of motion Extremities: Vascular intact, Neuro intact, No swelling Skin: Warm, Dry, No cyanosis Neurologic: Alert, Oriented, Nonfocal Psychiatric: Mood/affect normal, Behavior normal, Normal thought content General/Constitutional: Awake, Alert, No acute distress, Cooperative, Not toxic appearing Respiratory / Chest: Breath sounds NL, Breath sounds = bilat, No respiratory distress, No rales, No rhonchi, No wheezing Cardiovascular: Heart rate NL, Regular rhythm, Heart sounds NL, No murmurs Abdomen: Atraumatic, Soft, Non-tender, No guarding, No rebound, No distention, No palpable mass Back: Full range of motion, Painless range of motion Interpretation & Diagnostics Lab Results Interpretation Result Diagram: 12/23/16 1500 12/23/16 1500 Test 12/23/16 15:00 12/23/16 16:23 White Blood Count 10.1th/mm3 (3.8-10.1) Red Blood Count 3.85mil/mm3 (3.90-5.20) Hemoglobin 12.4g/dL (12.0-15.6) Hematocrit 35.7% (35.0-46.0) Mean Corpuscular Volume 92.7fL (81-100) Mean Corpuscular Hemoglobin 32.2pg (27.0-35.0) Mean Corpuscular Hemoglobin Concent 34.7% (32.0-37.0) Red Cell Distribution Width 12.6% (12.3-15.4) Platelet Count 91bil/L (150-400) Neutrophils (%) (Auto) 74.1% (40-74) Lymphocytes (%) (Auto) 16.0% (14-46) Monocytes (%) (Auto) 7.6% (4-12) Eosinophils (%) (Auto) 1.8% (0-5) Basophils (%) (Auto) 0.3% (0-3) Sodium Level 138mEq/L (134-144) Potassium Level 4.1mEq/L (3.5-5.2) Chloride Level 102mEq/L (97-108) Carbon Dioxide Level 19mmol/L (18-29) Blood Urea Nitrogen 10mg/dL (6-20) Creatinine 0.52mg/dL (0.57-1.00) Estimat Glomerular Filtration Rate 200mL/min (>59) Glucose Level 85mg/dL (60-99) Calcium Level 9.2mg/dL (8.5-10.1) Magnesium Level 1.8mg/dL (1.6-2.6) Total Bilirubin 0.5mg/dL (0.0-1.2) Aspartate Amino Transf (AST/SGOT) 17U/L (0-50) Alanine Aminotransferase (ALT/SGPT) 11U/L (0-32) Alkaline Phosphatase 29U/L (25-150) Total Protein 7.1g/dL (6.4-8.4) Albumin 4.4g/dL (3.4-5.0) Lipase 36U/L (13-60) HCG Beta Subunit [id number]/mL Hold Mauro Top Tube Received (Received) Urine Color Yellow (YELLOW) Urine Appearance Clear (CLEAR,HAZY) Urine pH 6.0 (5.0-8.0) Urine Specific [place] 1.015 (1.003-1.035) Urine Protein Negativemg/dL (NEG,TRACE) Urine Glucose (UA) Negativemg/dL (NEGATIVE) Urine Ketones 80mg/dL (NEGATIVE) Urine Occult Blood Negative (NEGATIVE) Urine Nitrite Negative (NEGATIVE) Urine Bilirubin Negative (NEGATIVE) Urine Urobilinogen Normalmg/dL (NORMAL) Urine Leukocyte Esterase Negative (NEGATIVE) Urine RBC 0-2/hpf (0-2) Urine WBC 0-5/hpf (0-5) Urine Epithelial Cells Moderate/hpf (NONE-MOD) Urine Crystals None seen (NONE SEEN) Urine Bacteria None/hpf (NONE-FEW) Urine Hyaline Casts None/lpf (NONE) Urine Granular Casts None seen (NONE SEEN) Urine Waxy Casts None seen (NONE SEEN) Urine Red Blood Cell Casts None seen (NONE SEEN) Urine White Blood Cell Casts None seen (NONE SEEN) Urine Mucus None seen (None Seen) Urine Trichomonas None seen (NONE SEEN) Urine Yeast None (NONE SEEN) Urinalysis Comment None Urine Culture Reflexed Not indicated Re-Eval/Medical Decision Med Decision/Clinical Course Med Decision/Clinical Course: 31-year-old female presenting several weeks with nausea vomiting for several days. She has not vomited today but has been dry heaving. He was given IV fluids and Reglan and felt much better. Her labs and vital signs are stable. She was tolerating by mouth prior to discharge. She was given home medications for her hyperemesis gravidarum with pyridoxine and doxylamine. She is advised follow-up with primary doctor in 1-2 days and return precautions given. Re-Evaluation/Progress : Time of Eval: 16:51 Patient Status: Condition improved, Moderate relief Re-Evaluation/Progress Note: Pt rechecked. Informed pt of plan for discharge. Pt understands and agrees with plan for discharge. F/U instructions and RTER warnings given. All questions addressed. Counseled Regarding: Diagnosis, Lab results, Need for follow-up, When/why to return to ED Discharge & Departure Primary Impression: Hyperemesis gravidarum Additional Impression: Idiopathic thrombocytopenia purpura Disposition: Home Discharge Condition All VS Reviewed: Yes Condition: Stable Patient Instructions: Hyperemesis Gravidarum (ED) Additional Instructions: Labs today were reassuring. Your platelet count was 91. Your beta HCG count was 77,425. Urine showed no signs of infection. Take the medication prescribed for nausea or vomiting or use the recommendations given to you by our pharmacist today. Follow-up with your primary care doctor in 2-3 days for a recheck. Return to the emergency department if you experience uncontrolled vomiting, fever, abdominal pain, vaginal bleeding, or for other concerning symptoms. Referrals: Senait Rossi MD Scribe Attestation Portions of this note were transcribed by Juan F Kruse. I, Dr. Crouch personally performed the history, physical exam and medical decision-making; I reviewed and confirmed the accuracy of the information in the transcribed note. copies to: Senait Rossi MD, Ben M MD Dec 23, 2016 14:34 JUAN F KRUSE Dec 23, 2016 14:46
[2016-12-23] MEDS ORDERED: MetoCLOpramide 5 mg/mL 2 mL Inj IVPUSH ONE (14:50)
[2016-12-23] MEDS ORDERED: 0.9% Sodium Chloride 1,000 ML IV ONE ×2 (14:50→16:30)
[2016-12-23 15:12] LABS: BASOPHILS % (AUTO) 0.3 % (0-3)
[2016-12-23 15:16] LABS: EOSINOPHILS % (AUTO) 1.8 % (0-5); MONOCYTES % (AUTO) 7.6 % (4-12); Mean Corpuscular Hemoglobin 32.2 pg (27.0-35.0); Mean Corpuscular Volume 92.7 fL (81-100); NEUTROPHILS % (AUTO) 74.1 % (40-74); Platelet Count 91 bil/L (150-400)
[2016-12-23 15:33] LABS: Magnesium 1.8 mg/dL (1.6-2.6)
[2016-12-23] MEDS ORDERED: DOXY1TAB3 PO (15:45)
[2016-12-23 16:39] VITALS: BP 102/44; PULSE 63; RESP 16; O2SAT 99
[2016-12-23 16:51] LABS: APPEARANCE,URINE CLEAR (CLEAR,HAZY); COLOR,URINE YELLOW (YELLOW); OCCULT BLOOD,URINE NEGATIVE (NEGATIVE); UROBILINOGEN,URINE NORMAL (NORMAL)
[2016-12-23 17:21] VITALS: BP 102/44; PULSE 63; RESP 16; O2SAT 99
== END 2016-12-23 17:21 | disposition home or self-care (01) ==
LOC: SED 14:03
DX: O21.0 Mild hyperemesis gravidarum (principal); D69.3 Immune thrombocytopenic purpura; Z87.59 Personal history of other complications of pregnancy, childbirth and the puerperium; Z3A.01 Less than 8 weeks gestation of pregnancy; Z88.8 Allergy status to other drugs, medicaments and biological substances
CPT/HCPCS: 36415; 80053; 81000; 81025; 83690; 83735; 84702; 85025; 96361; 96374; 99284; J2765; J7030

== ENCOUNTER 2017-01-17 15:54 | Emergency (ER) | payer OTHER ==
[~2017-01-17] VITALS: Ht 160 cm; Wt 52.3 kg
[2017-01-17 15:54] VITALS: BP 122/84; PULSE 80; RESP 13; RESP 16; O2SAT 100
[~2017-01-17 15:54] MED LIST changes: +DOXY1TAB3 PO
--- NOTE | 2017-01-17 16:22 | ED.REPORT ---
HPI-Syncope Date of Service Jan 17, 2017 ED Provider: History of Present Illness: A 31-year-old 11 week female here for syncopal episode. She was standing in the bright sunshine/heat today for about 15 minutes when she began to feel lightheaded, her ears are ringing, her vision went dark and she had a near syncopal episode or syncopal episode she is not sure. She made it to a lying position before she possibly passed out. She did not hit her head. She has not had any vaginal bleeding or discharge although her lower abdomen is tender and painful. She has history of miscarriage, and ectopic . She states she has been eating and drinking regularly today. She is a history of ITP. EMS gave her Zofran and a liter of normal saline and she is feeling better. She has a history of syncopal episodes with her ectopic . She has had 2 ultrasounds so far this and last was one month ago Nursing Notes Stated Complaint: SYNCOPE Chief Complaint: & Delivery Nursing Notes Reviewed: Yes Allergies: Coded Allergies: bupropion (Verified Allergy, Unknown, "I BLACK OUT", 07/17/16) Scheduled Acyclovir-Expunged Drug, Do Not Renew! (Acyclovir-Expunged Drug, Do Not Renew!) 400 Mg Tablet 400 MG PO BID Doxylamine/Pyridoxine 10-10 mg (Diclegis DR 10-10 mg) 1 Each Tablet.dr 1 TABLET PO BID Ferrous Sulfate (Feosol) 325 Mg Tablet 325 MG PO TID Vit/Fe Fumarate/Fa-Expunged Drug, Do (-Expunged Drug, Do Not Renew!) 1 Tab Tablet 1 TAB PO DAILY Scheduled PRN Docusate Sodium (Colace) 100 Mg Capsule 100 MG PO BID PRN PRN For Constipation Ibuprofen (Ibuprofen) 800 Mg Tablet 800 MG PO Q6H PRN PRN For Mild Pain oxyCODONE-Acetaminophen 5-325 mg (oxyCODONE-Acetaminophen 5-325 mg) 1 Each Tablet 1-2 TAB PO Q4H PRN PRN For Moderate Pain General Time Seen by Provider: 16:16 Chief Complaint Almost passed out, Became unresponsive Hx Obtained From: Patient Arrived By: Ambulance Onset Occurred: Just prior to arrival Context of Onset: Occurred outdoors Symptom Duration: Since onset Progression Since Onset: Rapidly improving Location: : Abdomen Radiation: Does not radiate Severity: Current: Mild Severity: Maximum: Mild Immunizations: All up to date Recent Healthcare: Recent doctor visit Similar Sx Previous: Yes Past Medical History Past Medical History ITP Hx ruptured left tubal ectopic causing hemoperitoneum Past Surgical History Smoking History Unknown if Ever Smoker Ambulatory Status Independent Review of Systems Basic Review of Systems : No dysuria, No frequency Hematologic: No bleeding, No bruising Allergy / Immune: No allergy Constitutional: Denies: Chills, Fatigue, Fever Eyes: Reports: Blurred bilateral, Visual loss bilateral, Denies: Eye pain bilateral Ears / Nose / Throat: Reports: Throat swelling Respiratory: Denies: Dyspnea on exertion, Non-productive cough Cardiovascular: Denies: Chest pain, Edema GI: Reports: Abdominal pain, Denies: Nausea, Vomiting Musculoskeletal: Denies: Back pain Skin: Denies Rash Neurologic: Reports: Syncope, Denies: Headache Complete sys rev & neg: except as marked. Physical Exam Initial Vital Signs Vital Signs (First) Date Time Temp Pulse Resp B/P Pulse Ox O2 Delivery O2 Flow Rate FiO2 01/17/17 15:54 36.6 80 13 122/84 100 Room Air Initial VS: Reviewed, Vital signs normal General/Constitutional: Awake, Alert, Well appearing Respiratory / Chest: Breath sounds NL, Breath sounds = bilat, No respiratory distress, No rales, No rhonchi, No wheezing Cardiovascular: Heart rate NL, Regular rhythm, Heart sounds NL, No murmurs, Cap refill not delayed, Peripheral circulation NL Lower Extremity / Pelvis / MS: Inspection NL, No swelling, Non-tender, No erythema, No deformity, Neurologic intact, Vascular intact, No edema Neurologic: Oriented X3, Speech NL, No motor deficits, No sensory deficits, CN II - XII intact, Reflexes equal bilat, Cerebellar NL Head / Eyes: Normocephalic, PERRL, No nystagmus, Conjunctiva NL Neck: Supple, Full range of motion, No swelling, Non-tender Abdomen: Atraumatic, Soft, McBurney's non-tender, No guarding, No rebound, BS normoactive, No distention, No palpable mass, No pulsatile mass Moderate lower abdominal tenderness. Interpretation & Diagnostics Interpretation & Diagnostics: +/- 7 days from 14 weeks to 15 weeks 6 days gestation, +/- 10 days from 16 weeks to 21 weeks 6 days gestation, +/- 2 weeks from 22 weeks to 27 weeks 6 days gestation, +/- 3 weeks for 28 weeks gestation or later. PROCEDURE: US OB<14 WKS+OB TRANSVAG INDICATIONS: NO POLE SEEN ON PRIOR OUTSIDE/PRIOR DATING DATA: Last menstrual period (LMP): 11/02/16. LMP-based estimated date of delivery (GÓMEZ): 08/09/17. First dating scan (date and location): 12/24/16. Estimated date of delivery (GÓMEZ) from first dating scan: 08/12/17. TECHNIQUE: Real-time scanning was performed of the fetus and maternal pelvic organs, with image documentation. Endovaginal scanning was also performed to better visualize the fetus and maternal ovaries. COMPARISON: [facility], , US OB<14 WKS, 12/12/2016, 11:30. FINDINGS: Embryo: [employer] Ultrasound Procedure Report Early Gestation [employer] Mean Gestational Sac Diameter: 2.31 cm Gestational Age (MGSD): 7 weeks, 2 days [place] Rump Length: 7 mm Gestational Age (CRL): 6 weeks, 4 days Summary Fetus Summary Heart Rate: 121 bpm Comments: A normal yolk sac is noted. No perigestational bleeds. Measurement variability in dating: +/- 4 weeks by LMP, +/- 7 days by mean sac diameter (use before 6 weeks gestation if crown-rump length not able to be measured), +/- 5 days by crown-rump length (up to 8 weeks 6 days gestation), +/- 7 days by crown-rump length (from 9 weeks to 13 weeks 6 days gestation). Maternal organs: Ovaries within normal limits, with right corpus luteal cyst. Limited images through the kidneys demonstrate no hydronephrosis. IMPRESSION: 6 week 4 day single living IUP. Lab Results Interpretation Result Diagram: 01/17/17 1633 01/17/17 1633 Test 01/17/17 16:33 White Blood Count 11.5th/mm3 (3.8-10.1) Red Blood Count 4.04mil/mm3 (3.90-5.20) Hemoglobin 13.1g/dL (12.0-15.6) Hematocrit 37.5% (35.0-46.0) Mean Corpuscular Volume 92.8fL (81-100) Mean Corpuscular Hemoglobin 32.4pg (27.0-35.0) Mean Corpuscular Hemoglobin Concent 34.9% (32.0-37.0) Red Cell Distribution Width 12.3% (12.3-15.4) Platelet Count 91bil/L (150-400) Neutrophils (%) (Auto) 72.6% (40-74) Lymphocytes (%) (Auto) 18.8% (14-46) Monocytes (%) (Auto) 6.3% (4-12) Eosinophils (%) (Auto) 1.7% (0-5) Basophils (%) (Auto) 0.3% (0-3) Sodium Level 138mEq/L (134-144) Potassium Level 3.6mEq/L (3.5-5.2) Chloride Level 100mEq/L (97-108) Carbon Dioxide Level 19mmol/L (18-29) Blood Urea Nitrogen 11mg/dL (6-20) Creatinine 0.59mg/dL (0.57-1.00) Estimat Glomerular Filtration Rate 173mL/min (>59) Glucose Level 89mg/dL (60-99) Calcium Level 10.4mg/dL (8.5-10.1) Total Bilirubin 0.4mg/dL (0.0-1.2) Aspartate Amino Transf (AST/SGOT) 19U/L (0-50) Alanine Aminotransferase (ALT/SGPT) 16U/L (0-32) Alkaline Phosphatase 32U/L (25-150) Troponin T < 0.010ug/L (0.0-0.011) Total Protein 8.0g/dL (6.4-8.4) Albumin 4.8g/dL (3.4-5.0) HCG Beta Subunit 39371tDI/mL Re-Eval/Medical Decision Med Decision/Clinical Course HR 170 by OB RN [id number] Patient not feeling dizzy in room, no chest pain, shortness of breath or abdominal pain at this time. Patient is eating in the room 2 L of fluid have gone in IV. Patient is ready for discharge with follow-up with symptoms worsen. no dizziness with ambulation. Patient had a normal ultrasound at 12/24/2016. her bhcg is trending upwards normally Discharge & Departure Shift Change Sign-Out Laboratory Evaluation: Lab evaluation discussed Response to Therapy: Improved Impression: Primary Impression: Syncopal episodes Syncope type: unspecified Qualified Code: R55 - Syncope and collapse Additional Impression: Idiopathic thrombocytopenia purpura Disposition: Home Discharge Condition All VS Reviewed: Yes Condition: Stable Patient Instructions: Syncope (DC) Additional Instructions: Trileptal water, eat healthy foods regularly, get lots of rest. Return immediately if symptoms recur otherwise follow-up with your PCP/[facility] for further care. Referrals: NOPCP (PCP) EDSupervising Provider for APC: José Miguel Granda MD, Linnea K ARNP Jan 17, 2017 16:22
[2017-01-17] MEDS ORDERED: 0.9% Sodium Chloride 1,000 ML IV ONE (16:30)
[2017-01-17 16:39] LABS: EOSINOPHILS % (AUTO) 1.7 % (0-5); Mean Corpuscular Hemoglobin 32.4 pg (27.0-35.0)
[2017-01-17 16:42] LABS: BASOPHILS % (AUTO) 0.3 % (0-3); MONOCYTES % (AUTO) 6.3 % (4-12); Mean Corpuscular Volume 92.8 fL (81-100); NEUTROPHILS % (AUTO) 72.6 % (40-74); Platelet Count 91 bil/L (150-400)
[2017-01-17 16:54] LABS: TROPONIN T < 0.010 ug/L (0.0-0.011)
[2017-01-17 17:27] VITALS: BP 107/66; PULSE 85; RESP 13; O2SAT 100
[2017-01-17 18:08] VITALS: BP 101/65; PULSE 77; RESP 18; O2SAT 100
== END 2017-01-17 18:05 | disposition home or self-care (01) ==
LOC: SED 15:54
DX: O26.891 Other specified pregnancy related conditions, first trimester (principal); R55 Syncope and collapse; D69.3 Immune thrombocytopenic purpura; Z87.891 Personal history of nicotine dependence; Z3A.01 Less than 8 weeks gestation of pregnancy; Z88.8 Allergy status to other drugs, medicaments and biological substances
CPT/HCPCS: 36415; 80053; 84484; 84702; 85025; 93005; 96360; 99284; J7030